=== PATIENT | male | born 1940 | race Caucasian/White ===

== ENCOUNTER → 2018-04-10 | Outpatient (CLI) | payer MEDICARE, OTHER ==
[~2018-04-10] MED LIST: ASPI-496 PO
== END | disposition home or self-care (01) ==
LOC: STAR 09:42 → MERGE 10:00
PROVIDERS: ATTEND Orthopaedic Surgery
DX: Z01.818 Encounter for other preprocedural examination (principal); M19.072 Primary osteoarthritis, left ankle and foot
CPT/HCPCS: 93005

== ENCOUNTER 2018-04-21 09:47 | Inpatient (IN) | payer MEDICARE, OTHER ==
[~2018-04-21] VITALS: Ht 182.9 cm; Wt 99.0 kg
[2018-04-21] MEDS ORDERED: SUCCINYLCHOLINE 20 MG/ML, 10ML ONE (10:26)
[2018-04-21] MEDS ORDERED: PHENYLEPHRINE 10 MG/ML ONE (10:26)
[2018-04-21] MEDS ORDERED: CEFAZOLIN 1,000 MG ONE (10:26)
[2018-04-21] MEDS ORDERED: DEXAMETHASONE 4 MG/ML, 1ML ONE (10:26)
[2018-04-21] MEDS ORDERED: PROPOFOL 10 MG/ML, 20ML ONE (10:26)
[2018-04-21] MEDS ORDERED: ROCURONIUM 10MG/ML,5ML ONE (10:26)
[2018-04-21] MEDS ORDERED: VASOPRESSIN 20 UNIT/ML, 1ML ONE (10:27)
[2018-04-21] MEDS ORDERED: FENTANYL PF 250 MCG/5ML ONE (12:44)
[2018-04-21] MEDS ORDERED: MIDAZOLAM 1 MG/ML, 2ML ONE (12:44)
[2018-04-21] MEDS ORDERED: BUPIVACAINE/PF 0.5% ONE ×2 (12:45)
[2018-04-21] MEDS ORDERED: LACTATED RINGERS 1,000 ML IV SCH (13:04)
[2018-04-21] MEDS ORDERED: GABAPENTIN 300 MG CAPSULE PO ONE (13:30)
[2018-04-21] MEDS ORDERED: ACETAMINOPHEN 500 MG TABLET PO ONE (13:30)
[2018-04-21] MEDS ORDERED: ONDANSETRON ODT 8 MG PO ONE (13:30)
[2018-04-21 13:36] VITALS: BP 147/89
[2018-04-21] MEDS ORDERED: ROPIvacaine/PF 0.2%, 100ML 550 ML (check volume) INJ ONE (15:30)
[2018-04-21] MEDS ORDERED: MEPERIDINE/PF 25MG/0.5ML IVPush PRN (16:00)
[2018-04-21] MEDS ORDERED: hydrALAzine 20 MG/ML, 1ML IV PRN (16:00)
[2018-04-21] MEDS ORDERED: ONDANSETRON 2MG/ML, 2ML IV PRN (16:00)
[2018-04-21] MEDS ORDERED: PROMETHAZINE 25 MG/ML, 1ML IV PRN (16:00)
[2018-04-21] MEDS ORDERED: ALBUTEROL/IPRATROPIUM 2.5MG/0.5MG, 3 ML NPPB PRN (16:00)
[2018-04-21] MEDS ORDERED: OXYcodone 5 MG/5 ML ORAL.SOL UDC PO PRN (16:00)
[2018-04-21] MEDS ORDERED: LABETALOL 5MG/ML, 20ML IV PRN (16:00)
[2018-04-21] MEDS ORDERED: HYDROmorphone 2 MG/ML, 1ML IVPush PRN (16:00)
[2018-04-21] MEDS ORDERED: FENTANYL PF 100 MCG/2ML IV PRN (16:00)
[2018-04-21] MEDS ORDERED: MIDAZOLAM 1 MG/ML, 2ML IV PRN (16:00)
[2018-04-21] MEDS ORDERED: TRANEXAMIC ACID 100 MG/ML, 10ML ONE (16:31)
[2018-04-21] MEDS ORDERED: OXYcodone 5 MG/5 ML ORAL.SOL UDC ONE (17:38)
[2018-04-21] MEDS ORDERED: OXYC5CAP2 PO (20:29)
[2018-04-21 20:57] VITALS: BP 120/76
== END 2018-04-21 23:03 | disposition home or self-care (01) | DRG 469 ==
LOC: ORIP 12:38 → 4NOR 18:09
PROVIDERS: ADMIT Orthopaedic Surgery; ATTEND Orthopaedic Surgery
PROC: 0YQL0ZZ Repair Left Ankle Region, Open Approach (ICD-10-PCS; 2018-04-21)
PROC: 0QUH07Z Supplement Left Tibia with Autologous Tissue Substitute, Open Approach (ICD-10-PCS; 2018-04-21)
PROC: 0SRG0JZ Replacement of Left Ankle Joint with Synthetic Substitute, Open Approach (ICD-10-PCS; principal; 2018-04-21 14:15)
DX: M19.072 Primary osteoarthritis, left ankle and foot (principal); Z88.0 Allergy status to penicillin
CPT/HCPCS: 76001; G0378; J0690; J1100; J2250; J2704; J2795; J3010; J3490; Q0162; C1776; J0330; J2370; J7120